=== PATIENT | female | born 1970 | race African-American/Black ===

== ENCOUNTER 2018-11-24 11:49 | Outpatient (CLI) | payer BC ==
--- NOTE | 2018-11-24 14:03 | RAD ---
TWO VIEW CHEST: COMPARISON: No prior comparison. INDICATION: Cough, hemoptysis, pneumonia. FINDINGS: There are multifocal opacities of the left lung. Interstitial prominence is seen bilaterally. Cardi ac silhouette is enlarged. No significant vascular congestion. No evidence of effusion or discrete pneumothorax. IMPRESSION: Multifocal nodular opacities of the left lung, nonspecific. This could relate to atypical pneumonia. Alternatively, areas of alveolar hemorrhage, given history of hemoptysis, are a consideration. Rec ommend continued imaging followup to confirm resolution. POS: GAIL
== END 2018-11-24 11:50 | disposition home or self-care (01) ==
LOC: BICRAD 11:49
PROVIDERS: ATTEND Family Medicine
DX: R05 Cough (principal); R04.2 Hemoptysis; J18.9 Pneumonia, unspecified organism; R91.1 Solitary pulmonary nodule
CPT/HCPCS: 71046